=== PATIENT | male | born 1985 | race Caucasian/White ===

== ENCOUNTER 2017-02-18 15:50 | Emergency (ER) | payer OTHER ==
[2017-02-18 16:34] VITALS: RESP 18
[2017-02-18] MEDS ORDERED: methylPREDNISolone SOD SUCCI 125 MG/2 ML VIAL IM ONE (17:08)
[2017-02-18] MEDS: diphenhydrAMINE 50 MG CAP PO STA ×2 (17:11→19:04)
--- NOTE | 2017-02-18 17:12 | ED ---
Eye Problem HPI - General Stated complaint: Eye Infection - Med Reaction Time Seen by Provider: 02/18/17 16:47 Source: patient Mode of arrival: ambulatory Limitations: physical limitation - History of Present Illness Initial comments: Patient is a 31-year-old male presenting to the emergency department with chief complaint of bilateral eye redness. Patient reports that on January was diagnosed with preorbital cellulitis and was placed on Keflex for 7 days. Patient reports that they started to get better on February 06. Patient states that on february 12 it started to become worse so he saw his primary care physician on , February 14. Patient states that on February 14 he was placed on Augmentin. Patient states that since then his eye became increasingly red and he was evaluating an ALLERGIC reaction to medication as well as continuing to have the infection. Patient states that he has no pain with his eye movements and no pain specifically the eyes. He does have significant swelling and redness and heat coming from around both eyes. Patient states that he has stopped using the eyedrops that he was prescribed does not need to take both anymore. He was also prescribed a Medrol Dosepak has not helped. Patient Reports that the hives started yesterday. - Related Data Previous Rx's Medication Instructions Recorded Clindamycin [Cleocin] 300 mg PO QID 7 Days 02/18/17 Famotidine [Pepcid] 20 mg PO BID #10 tablet 02/18/17 predniSONE 20 mg PO BID 5 Days 02/18/17 Allergies Allergy/AdvReac Type Severity Reaction Status Date / Time amoxicillin [From Augmentin] Allergy Unknown Verified 02/18/17 17:27 clavulanic acid Allergy Unknown Verified 02/18/17 17:27 [From Augmentin] Sulfa (Sulfonamide Allergy Rash/Hives Verified 02/18/17 16:34 Antibiotics) Review of Systems ROS Statement: Those systems with pertinent positive or pertinent negative responses have been documented in the HPI. ROS Other: All systems not noted in ROS Statement are negative. Past Medical History Past Medical History: No Reported History History of Any Multi-Drug Resistant Organisms: None Reported Additional Past Surgical History / Comment(s): HYPOSPADIAS, HERNIA, KIDNEY STONE Past Psychological History: No Psychological Hx Reported Smoking Status: Never smoker Past Alcohol Use History: None Reported Past Drug Use History: None Reported General Exam Limitations: physical limitation General appearance: alert, in no apparent distress Head exam: Present: atraumatic, normocephalic, normal inspection Eye exam: Present: normal appearance, PERRL, EOMI, periorbital swelling (Mild periorbital swelling. Patient has significant bilateral erythema surrounding both orbits.), periorbital tenderness. Absent: scleral icterus, conjunctival injection ENT exam: Present: normal exam, normal oropharynx, mucous membranes moist Neck exam: Present: normal inspection. Absent: tenderness, meningismus, lymphadenopathy Respiratory exam: Present: normal lung sounds bilaterally. Absent: respiratory distress, wheezes, rales, rhonchi, stridor Cardiovascular Exam: Present: regular rate, normal rhythm, normal heart sounds. Absent: systolic murmur, diastolic murmur, rubs, gallop, clicks GI/Abdominal exam: Present: soft, normal bowel sounds. Absent: distended, tenderness, guarding, rebound, rigid Extremities exam: Present: normal inspection, full ROM, normal capillary refill. Absent: tenderness, pedal edema, joint swelling, calf tenderness Back exam: Present: normal inspection Neurological exam: Present: alert, oriented X3, CN II-XII intact Psychiatric exam: Present: normal affect, normal mood Skin exam: Present: warm, dry, intact, normal color. Absent: rash Course Vital Signs 02/18/17 02/18/17 16:28 18:51 Temperature 98.1 F 98.0 F Pulse Rate 87 74 Respiratory 18 18 Rate Blood Pressure 156/92 153/89 O2 Sat by Pulse 98 100 Oximetry Medical Decision Making - Medical Decision Making Patient is a 31 year old male with bilateral periorbital cellulitis and contact dermatitis reaction, as well as allergic reaction to penicillin antibiotic. Patient reports that he was diagnosed with periorbital cellulitis, and initially started on keflex, and then later switched to augmentin. Patient has had hives and allergic reaction to penicillin for 2 days. Patient has bilateral eye drainage, and bilateral eryhema around the eyes. Patient given IV fluids, and labs obtained. Labs are normal, aerobic culture of the eye drainage obtained. Patient given CT of orbits, unremarkable for significant swelling or abnormalities besides diffuse sinusitis. Discussed case with Dr. Salcido, he did a face to face exam. Patient will be diagnosed with contact dermatitis of bilateral orbits likely related to an exposure from work, placed on pepcid, benadryl, steroids, and clindamycin for sinusitis. Patient advised to follow up with opthalmologist tomorrow. Patient agrees with treatment plan and will comply. - Lab Data Result diagrams: 02/18/17 17:38 02/18/17 17:38 Lab Results 02/18/17 02/18/17 Range/Units 17:38 17:38 WBC 9.6 (3.8-10.6) k/uL RBC 4.68 (4.30-5.90) m/uL Hgb 14.4 (13.0-17.5) gm/dL Hct 43.0 (39.0-53.0) % MCV 91.9 (80.0-100.0) fL MCH 30.8 (25.0-35.0) pg MCHC 33.5 (31.0-37.0) g/dL RDW 12.3 (11.5-15.5) % Plt Count 294 (150-450) k/uL Neutrophils % 72 % Lymphocytes % 18 % Monocytes % 6 % Eosinophils % 3 % Basophils % 1 % Neutrophils # 7.0 (1.3-7.7) k/uL Lymphocytes # 1.7 (1.0-4.8) k/uL Monocytes # 0.5 (0-1.0) k/uL Eosinophils # 0.3 (0-0.7) k/uL Basophils # 0.1 (0-0.2) k/uL Sodium 144 (137-145) mmol/L Potassium 3.9 (3.5-5.1) mmol/L Chloride 107 (98-107) mmol/L Carbon Dioxide 24 (22-30) mmol/L Anion Gap 13 mmol/L BUN 18 (9-20) mg/dL Creatinine 0.83 (0.66-1.25) mg/dL Est GFR (MDRD) Af Amer >60 (>60 ml/min/1.73 sqM) Est GFR (MDRD) Non-Af >60 (>60 ml/min/1.73 sqM) Glucose 99 (74-99) mg/dL Calcium 9.9 (8.4-10.2) mg/dL - Radiology Data Radiology results: report reviewed Mild degenerative disc changes at L3/4/L2/3. Mild spondylosis. 2 cm mucous retention cyst or polyp in the inferior right maxillary sinus. There are suspicious patchy opacification in the left maxillary sinus only. There is mild to moderate mucosal thickening with patchy opacification a posterior small caliber right sphenoid sinus. There is opacity filling the posterior right ethmoid sinus on axial image 28. Mild mucosal thickening involving the anterior right ethmoid sinuses. Mucosal thickening with polyp inferior right axillary sinus. Mucosal thickening in the left maxillary sinus inferiorly. Impression is no suspicious infiltrate orbital inflammatory change or fluid collection bilaterally. Incidental sinus disease as detailed above. Disposition Clinical Impression: Sinusitis, Allergic contact dermatitis of eyelids of both eyes Disposition: HOME SELF-CARE Condition: Good Instructions: Contact Dermatitis (ED), Sinusitis (ED) Additional Instructions: Patient advised to follow-up with ophthalmic tech tomorrow. Return to emergency Department if any alarming signs or symptoms occur. Take the new antibiotic as well as steroids and Pepcid as directed. Continue to take Benadryl. Patient advised to avoid any contact with the eyes. Continue to apply the Vaseline over the areas. Prescriptions: Clindamycin [Cleocin] 300 mg PO QID 7 Days Famotidine [Pepcid] 20 mg PO BID #10 tablet predniSONE 20 mg PO BID 5 Days Referrals: Dutch Beard MD [Primary Care Provider] - 1-2 days Adryan Álvarez MD [STAFF PHYSICIAN] - 1-2 days Time of Disposition: 19:09
[2017-02-18] MEDS ORDERED: FAMOTIDINE 20 MG/2 ML VIAL IV STA (17:26)
[2017-02-18 17:49] LABS: Basophils # (A) 0.1 k/uL (0-0.2); Basophils % (A) 1 %; CHCM 33.8; Eosinophils # (A) 0.3 k/uL (0-0.7); Eosinophils % (A) 3 %; HDW 2.39; HGB 14.4 gm/dL (13.0-17.5); Luc # (Auto) 0.09; Luc % (Auto) 1; Lymphocytes # (A) 1.7 k/uL (1.0-4.8); Lymphocytes % (A) 18 %; MCH 30.8 pg (25.0-35.0); MCHC 33.5 g/dL (31.0-37.0); MCV 91.9 fL (80.0-100.0); Mean Platelet Volume 7.4; Monocytes # (A) 0.5 k/uL (0-1.0); Monocytes % (A) 6 %; Neutrophils % (A) 72 %; RBC 4.68 m/uL (4.30-5.90); RDW 12.3 % (11.5-15.5); WBC 9.6 k/uL (3.8-10.6); WBC (Perox) 9.43
[2017-02-18] MEDS ORDERED: RX INFO: IV CONTRAST WAS GIVEN 1 EACH MISC MISCELLANE PRN (17:55)
[2017-02-18 17:58] LABS: Anion Gap 13 mmol/L; Blood Urea Nitrogen 18 mg/dL (9-20); Calcium 9.9 mg/dL (8.4-10.2); Carbon Dioxide 24 mmol/L (22-30); Chloride 107 mmol/L (98-107); Glucose 99 mg/dL (74-99); Non-African American GFR(MDRD) >60 (>60 ml/min/1.73 sqM); Potassium 3.9 mmol/L (3.5-5.1); Sodium 144 mmol/L (137-145)
[2017-02-18] MEDS ORDERED: SODIUM CHLORIDE 0.9% 1,000 ML IV ONE (18:43)
--- NOTE | 2017-02-18 18:44 | CT ---
EXAMINATION TYPE: CT orbits w con DATE OF EXAM: 02/18/2017 6:27 PM COMPARISON: NONE HISTORY: med rxn CT DLP: 410.1 mGycm Automated exposure control for dose reduction was used. CT orbits is performed with IV contrast. CONTRAST: Performed with IV Contrast, patient injected with 100 mL of Omnipaque 300. FINDINGS: The globes are intact bilaterally. Intraconal fat is preserved bilaterally. Rectus muscles are symmetric and felt within normal limits. Orbital floors and hawley are intact. No acute facial bone fracture or dislocation is seen. There is 2.7 cm mucous retention cyst or polyp in the inferior right maxillary sinus. There is suspic ious patchy opacification in the left maxillary sinus dependently. There is mild to moderate mucosal thickening with patchy opacification in posterior small caliber right sphenoid sinus. There is opacit y filling posterior right ethmoid sinus on axial image 28. There is mild mucosal thickening involving anterior right ethmoid sinuses. There is mucosal thickening with polyp in the inferior right maxilla ry sinus. There is mucosal thickening in the left maxillary sinus inferiorly. IMPRESSION: NO SUSPICIOUS INTRAORBITAL INFLAMMATORY CHANGE OR FLUID COLLECTION BILATERALLY. INCIDENTAL SINUS DISE ASE DETAILED ABOVE.
[2017-02-18 18:53] VITALS: BP 153/89; PULSE 74; TEMP 98
== END 2017-02-18 19:40 | disposition home or self-care (01) ==
LOC: EC 15:50
DX: L23.3 Allergic contact dermatitis due to drugs in contact with skin (principal); T36.0X5A Adverse effect of penicillins, initial encounter; J32.9 Chronic sinusitis, unspecified; Z88.0 Allergy status to penicillin; Z88.2 Allergy status to sulfonamides
CPT/HCPCS: 99284; 96374; 96361; 96372; 36415; 80048; 85025; 87070; 87205; 87077; 87186; 70481; J2930; Q9967